=== PATIENT | female | born 1960 | race Two or more races ===

== ENCOUNTER 2020-06-22 17:03 | Emergency (ER) | payer SELFPAY ==
[~2020-06-22] VITALS: Ht 157.5 cm; Wt 70.5 kg
[2020-06-22] MEDS ORDERED: ATOR20TA86 PO (17:17)
[2020-06-22] MEDS ORDERED: METF-960 PO (17:17)
[2020-06-22 19:42] VITALS: BP 122/80
== END 2020-06-22 19:43 | disposition home or self-care (01) ==
LOC: EMS 17:03
DX: S82.002A Unspecified fracture of left patella, initial encounter for closed fracture (principal); E11.9 Type 2 diabetes mellitus without complications; E78.00 Pure hypercholesterolemia, unspecified; W01.0XXA Fall on same level from slipping, tripping and stumbling without subsequent striking against object, initial encounter; Y93.89 Activity, other specified; Y92.89 Other specified places as the place of occurrence of the external cause; Y99.8 Other external cause status
CPT/HCPCS: 29505